=== PATIENT | female | born 1950 | race Caucasian/White ===

== ENCOUNTER 2023-12-04 06:56 | Day surgery (SDC) | payer OTHER, SELFPAY ==
[2023-11-24 10:13] LABS: Hemoglobin 13.2 g/dL (12.0-16.0); Mean Corpuscular Hgb 30.3 pg (27.0-31.0); Mean Platelet Volume 9.5 fL (7.4-10.4); Platelet Count 252 10^3/uL (130-400); Red Blood Cell Count 4.35 10^6/uL (4.20-5.40); Red Cell Dist. Width 12.8 % (11.5-14.5); White Blood Cell Count 5.6 10^3/uL (4.8-10.8)
[2023-11-24 10:40] LABS: Blood Urea Nitrogen 14 mg/dl (7-17); Calcium 9.6 mg/dl (8.4-10.2); Carbon Dioxide 27 mmol/L (22-30); Chloride 103 mmol/L (98-107); Glucose 89 mg/dl (70-99); Potassium 3.9 mmol/L (3.5-5.1); Sodium 139 mmol/L (135-145); eGFR > 60.00
--- NOTE | 2023-11-24 11:14 | CM ---
Patient is scheduled for surgery with Dr. Vang on 12/04/23. Spoke with patient prior to surgery via telephone, Introduced role of case management. Patient reports that she lives alone in a multi story home. Bedroom and full bathroom are on the
second floor. She functions independently and does not use any DME. She has never had VN services.
PCP: Dr. Linh Roque
Patient states that after surgery her son will be with her. She has no concerns about returning home at this time. No discharge planning needs currently identified.
[2023-11-24 14:15] VITALS: BMI 25.4
[2023-12-04] VITALS (11 sets, daily range): BP systolic 109–129; BP diastolic 68–79; BMI 25.4
[2023-12-04] MEDS: Pyridium 200 MG PO (11:39)
[2023-12-04] MEDS: NORMOSOL-R 1000 IV (11:50)
[2023-12-04] MEDS: ZOFRAN 4 MG IV (15:39)
--- NOTE | 2023-12-04 15:54 | PTCARENOTE ---
pt. resting comfortably, denies pain,states she has little nausea. no drainage noted on jose pad
[2023-12-04] MEDS: COMPAZINE 5 MG IV (16:05)
== END 2023-12-04 18:03 | disposition home or self-care (01) ==
LOC: SDS 06:56
PROVIDERS: ATTENDING PHYSICIAN Obstetrics & Gynecology; FAMILY PHYSICIAN Family Medicine
DX: N81.10 Cystocele, unspecified (principal); N81.6 Rectocele
CPT/HCPCS: 57282; 57250; 36415; 80048; 85027; 86850; 86900; 86901; 93005

== ENCOUNTER → 2024-08-12 10:36 | Outpatient (REF) | payer OTHER, SELFPAY | LOC: HWRAD 10:36 | PROVIDERS: ATTENDING PHYSICIAN Family Medicine | DX: R74.8 Abnormal levels of other serum enzymes (principal) | CPT/HCPCS: 76700 ==